=== PATIENT | male | born 2000 | race Caucasian/White ===

== ENCOUNTER → 2025-02-15 07:02 | Outpatient (REF) | payer OTHER, SELFPAY ==
[2025-02-15 08:02] LABS: % Basophils 0.7 % (0-2); % Eosinophils 2.2 % (0-6); % Immature Granulocytes 0.3 % (0-0.5); % Lymphocytes 41.8 % (20.5-51.1); % Monocytes 9.6 % (1.7-9.3); % Neutrophils 45.4 % (42.2-75.2); Absolute Basophils 0.1 10^3/uL (0-0.2); Absolute Eosinophils 0.2 10^3/uL (0-0.7); Absolute Lymphocytes 2.9 10^3/uL (1.2-3.4); Absolute Monocytes 0.7 10^3/uL (0.1-0.6); Absolute Neutrophils 3.1 10^3/uL (1.4-6.5); Hematocrit 45.7 % (39.0-52.0); Hemoglobin 15.4 g/dL (13.0-18.0); Mean Corp Hgb Conc. 33.7 g/dL (33.0-37.0); Mean Corpuscular Hgb 29.4 pg (27.0-31.0); Mean Corpuscular Volume 87.2 fL (80.0-94.0); Mean Platelet Volume 10.7 fL (7.4-10.4); Nucleated Red Blood Cells % 0 % (-); Platelet Count 234 10^3/uL (130-400); Red Blood Cell Count 5.24 10^6/uL (4.70-6.10); White Blood Cell Count 6.9 10^3/uL (4.8-10.8)
[2025-02-15 08:46] LABS: ALT (SGPT) 30 U/L (0-50); AST (SGOT) 24 U/L (17-59); Albumin 4.9 g/dl (3.5-5.0); Alkaline Phosphatase 92 U/L (38-126); Blood Urea Nitrogen 18 mg/dl (9-20); Calcium 9.8 mg/dl (8.4-10.2); Carbon Dioxide 28 mmol/L (22-30); Chloride 100 mmol/L (98-107); Glucose 92 mg/dl (70-99); HDL Cholesterol 51 mg/dl; LDL Cholesterol, Calculated 104 mg/dl; Potassium 4.9 mmol/L (3.5-5.1); Sodium 140 mmol/L (135-145); Total Bilirubin 0.7 mg/dl (0.2-1.3); Total Cholesterol 175 mg/dl (50-199); Total Protein 7.2 g/dl (6.3-8.2); Triglyceride 103 mg/dl (10-149); Very Low Density Lipoprotein 20 mg/dl (0-30); eGFR > 60.00
[2025-02-15 10:12] LABS: Free T3 4.03 pg/ml (2.77-5.27); Free T4 1.23 ng/dl (0.78-2.19)
[2025-02-15 10:25] LABS: TSH 1.77 uIU/ml (0.47-4.68)
[2025-02-15 10:29] LABS: Ferritin 44.3 ng/ml (17.9-464.0)
[2025-02-15 11:00] LABS: Folate 7.1 ng/ml (2.76-20); Vitamin B12 695 pg/ml (239-931)
== END ==
LOC: REG 07:02
PROVIDERS: ATTENDING PHYSICIAN Physician Assistant; FAMILY PHYSICIAN Physician Assistant
DX: Z13.9 Encounter for screening, unspecified (principal); R53.83 Other fatigue; E55.9 Vitamin D deficiency, unspecified; R00.0 Tachycardia, unspecified; F41.1 Generalized anxiety disorder; F33.1 Major depressive disorder, recurrent, moderate
CPT/HCPCS: 36415; 80053; 80061; 82306; 82607; 82728; 82746; 83735; 84439; 84443; 84481; 85025